=== PATIENT | female | born 1975 | race Caucasian/White ===

== ENCOUNTER 2019-03-14 18:51 | Emergency (ER) | payer BC, OTHER ==
[~2019-03-14] VITALS: Ht 165.1 cm; Wt 71.7 kg
[~2019-03-14 18:51] MED LIST: BUPR-173 PO; ESCI5TAB PO; OXYC5CAP2 PO; VALA500T PO
--- NOTE | 2019-03-14 19:06 | NUR ---
PT REPORTS CURRENT PADRON WITH HX OF SAME. REPORTS 9/10 PAIN WITH N/V X3 TODAY. DENIES HEAD TRAUMA, DIZZINESS OR LIGHT SENSISITIVITY. PT ALERT AND TALKATIVE. NO S/S STROKE. REPORTS COLD FOR X1 WEEK, DENIES SINUS PRESSURE. PT CONNECTED TO MONITORING, CALL LGITH WITHIN REACH. ALL SAFETY MEASURES IN PLACE.
[2019-03-14] MEDS ORDERED: ONDANSETRON ODT 8 MG PO ONE (19:30)
[2019-03-14] MEDS ORDERED: DIPHENHYDRAMINE 25 MG CAPSULE PO ONE (19:30)
[2019-03-14] MEDS ORDERED: ACETAMINOPHEN 325 MG TABLET PO ONE (19:30)
[2019-03-14] MEDS ORDERED: KETOROLAC 30 MG/1 ML IM ONE (19:30)
[2019-03-14] MEDS ORDERED: KETOROLAC 30 MG/1 ML ONE (19:32)
[2019-03-14] MEDS ORDERED: DIPHENHYDRAMINE 25 MG CAPSULE ONE (19:32)
[2019-03-14] MEDS ORDERED: ACETAMINOPHEN 325 MG TABLET ONE (19:32)
[2019-03-14] MEDS ORDERED: ONDANSETRON ODT 8 MG ONE (19:32)
--- NOTE | 2019-03-14 19:52 | NUR ---
PT RESTING ON GURNEY WITH FAMILY AT BS REPORTS DECREASED PADRON PAIN AFTER CORPORATE SAFETY MANAGER.
[2019-03-14 20:12] VITALS: BP 128/73
== END 2019-03-14 20:43 ==
LOC: ED 20:37
DX: G43.009 Migraine without aura, not intractable, without status migrainosus (principal); Z87.11 Personal history of peptic ulcer disease
CPT/HCPCS: 96372; 99284; J1885; Q0162; Q0163